=== PATIENT | male | born 1945 | race Caucasian/White ===

== ENCOUNTER 2017-12-08 06:39 | Inpatient (IN) | payer MEDICARE, OTHER ==
[2017-11-26 09:38] LABS: HEMATOCRIT 38.3 % (42.0-52.0); HEMOGLOBIN 12.9 gm/dL (14.0-18.0); MCHC 33.5 g/dL (28.0-37.0); MCV 95.3 fL (80.0-100.0); MPV 7.5 fl. (7.2-11.1); RBC 4.02 mil/uL (4.50-6.00); RDW-CV 13.6 % (10.5-14.5); WBC 4.6 thou/uL (4.0-11.0)
[2017-11-26 09:49] LABS: URINE BILIRUBIN NEGATIVE (Negative); URINE BLOOD NEGATIVE (Negative); URINE CLARITY CLEAR; URINE COLOR YELLOW; URINE GLUCOSE-RANDOM NEGATIVE (Negative); URINE KETONES NEGATIVE (Negative); URINE LEUKOCYTES-REFLEX NEGATIVE (Negative); URINE NITRITE-REFLEX NEGATIVE (Negative); URINE PROTEIN NEGATIVE (Negative); URINE UROBILINOGEN 0.2 E.U./dl (0.2-1.0)
[2017-11-26 10:02] LABS: ALBUMIN 3.8 g/dL (3.4-5.0); CALCIUM 9.1 mg/dL (8.5-10.1); CREATININE 2.1 mg/dL (0.6-1.3); POTASSIUM 3.9 mmol/L (3.5-5.1); TOTAL BILIRUBIN 0.5 mg/dL (<0.1-1.0); TOTAL PROTEIN 7.5 g/dL (6.4-8.2)
[2017-11-26 10:03] LABS: INR 1.1; PROTIME 10.5 Seconds (9.20-11.50)
--- NOTE | 2017-11-26 16:02 | EKG ---
[place] [address] ELECTROCARDIOGRAM REPORT Name: CHANO LANGLEY Room: PRE IN [facility]#: [id number] Admission: Attend Phys: Neli Herrera Discharge: Date of : 43 Report #: [id number] THIS REPORT FOR: //name// [facility] Test Date: 2017-11-26 Test Time: 09:25:19 Pat Name: CHANO LANGLEY Department: Room: Gender: Export Agent: : 1945 Requested By: Saurabh Solo Order Number: [id number] Reading MD: Rober Damian Measurements Intervals Wilbur Rate: 68 P: 52 ND: 190 QRS: -19 QRSD: 98 T: 51 QT: 371 QTc: 395 Interpretive Statements Sinus rhythm Borderline left axis deviation No previous ECG available for comparison Electronically Signed On 11-26-2017 16:02:50 CDT by Rober Damian [email or web address] <ELECTRONICALLY SIGNED> By: Rober Damian MD, [facility] 11/26/17 1602 0925 0925 Rober Damian MD, FACC /EPI
[~2017-12-08] VITALS: Ht 182.9 cm; Wt 77.1 kg
[~2017-12-08 06:39] MED LIST: AMBIEN 5 MG TABL5 M1 PO; APAP650 PO; APPLE CIDER VI600 MG PO; ASPIR 8181 MG PO; BIOTIN2500 MCG PO; CALCIUM 600 +1 EAC1 PO; CENTRUM GARLIC300 MG PO; CENTRUM SILVER1 EAC2 PO; CO Q-10100 MG PO; CURCUMIN PO; FISH OIL 1,001000 M2 PO; GLUCOSAMINE CH PO; HYDROCODONE-AP1 EAC6 PO; MAGOX 400400 MG PO; PREDNISONE ACETATE OPHTHALMIC; PROSTATE HEALT1 EAC1 PO; TURMERIC PO; VOLTAREN GEL 1100 G2 TOP; ZESTORETIC 20-1 EAC3 PO
[2017-12-08 11:18] VITALS: BP 150/76
[2017-12-08 16:40] VITALS: BP 146/79
--- NOTE | 2017-12-08 18:52 | NUR ---
PATIENT ADMITTED TO ROOM 309 POST RIGHT TOTAL KNEE AT 1640. ASSESSMENT CHARTED. VITALS STABLE ON ROOM AIR, CAPNO IN PLACE. HAS DENIED PAIN SINCE SURGERY. BULKY DRESSING TO RIGHT KNEE INTACT. HEMOVAC DRAIN PATENT AND POLAR CARE TO RIGHT KNEE. SCD FOOT PUMPS IN PLACE. IV FLUIDS INFUSING. HAS HAD FAMILY AT BEDSIDE THIS EVENING. FALL PRECAUTIONS IN PLACE. CALL LIGHT WITHIN REACH. WILL CONTINUE WITH PLAN OF CARE.
[2017-12-08 20:30] VITALS: BP 138/69
[2017-12-09 00:05] VITALS: BP 155/75
[2017-12-09 00:09] VITALS: BP 122/54
--- NOTE | 2017-12-09 05:18 | NUR ---
PATIENT ALERT AND ORIENTED. VITALS STABLE. PLACED ON 2L, CAPNO IN PLACE. RIGHT KNEE DRESSING C/D/I. PAIN CONTROLLED WITH PO MEDICATION. DENIES NAUSEA. REPOSITIONS SELF IN BED. HEMAVAC IN PLACE. HOURLY ROUNDS. BED ALARM IN USE. NURSING WILL CONTINUE TO MONITOR.
[2017-12-09 05:25] LABS: HEMATOCRIT 33.1 % (42.0-52.0); HEMOGLOBIN 11.4 gm/dL (14.0-18.0)
[2017-12-09 06:56] VITALS: BP 134/77
[2017-12-09 07:55] VITALS: BP 128/68
--- NOTE | 2017-12-09 08:59 | NUR ---
RECIEVED O.T. EVAL AND TX ORDERS. WILL DEFER TO P.T. AND NURSING AT THIS TIME. PLEASE ORDER FURTHER O.T. SERVICES IF NEEDED.
[2017-12-09 10:17] LABS: CALCIUM 8.4 mg/dL (8.5-10.1); CREATININE 1.9 mg/dL (0.6-1.3); POTASSIUM 4.9 mmol/L (3.5-5.1)
[2017-12-09] MEDS ORDERED: XARELTO10 MG PO (10:26)
[2017-12-09 10:30] VITALS: BP 128/68
--- NOTE | 2017-12-09 11:12 | NUR ---
SW met with pt to complete initial assessment, introduce self, and SW role. Pt alert, oriented, pleasant. Pt lives at home with his and pt explained that pt is not able to assist physically due to her own health limitations, but that pt sister in law is planning on staying with pt and pt for a while and pt sister in law can provide any support and assistance needed. Pt just has a rollator and knows that he needs a standard rolling walker. SW to order standard rolling walker through [facility]. Pt has toilet riser and shower bench already and also has a stair lift. Pt to have HH services follow. GILBERTO sent referral and orders to [facility] and left a message with Rhianna.
--- NOTE | 2017-12-09 11:47 | NUR ---
[facility] JIM'D PT.TO HAVE A FWW. FAXED FACE SHEET AND ORDER TO HER. CM WILL LET THERAPY KNOW THAT PT.NEEDS A FRONT WHEEL WALKER AT DISCHARGE.
[2017-12-09 12:14] VITALS: BP 101/50
[2017-12-09] MEDS ORDERED: ASPIRIN325 PO (12:23)
--- NOTE | 2017-12-09 12:23 | NUR ---
CM CALLED IN PRESCRIPTION FOR XARELTO WRITTEN. COPAY WILL BE $167. DISCUSSED WITH PT. HE SAID TOLD HIM IF BLOOD THINNER IS TOO MUCH, HE CAN TAKE A FULL STRENGTH ASPIRIN DAILY INSTEAD. HE WOULD LIKE TO DO THAT. RAAD ANDINO NOTIFIED.
--- NOTE | 2017-12-09 14:39 | NUR ---
PATIENT DISCHARGING TO HOME WITH HOME HEALTH. IV REMOVED. SCRIPT FOR NORCO GIVEN. PATIENT UNABLE TO AFFORD XARELTO. PER DR MARTINO PATIENT MAY DO ASPIRIN 325MG DAILY FOR [address] XARELTO. PAIN CONTROLLED. CPM SENT [facility] PATIENT. HEMOVAC REMOVED AND DRESSING APPLIED. BILATERAL TEDS IN PLACE. PATIENT AND SPOUSE VERBALIZE UNDERSTANDING OF DC INSTRUCTIONS.
--- NOTE | 2017-12-10 15:05 | S ---
[place] [address] SURGICAL PATH RPT PROCEDURE Name: JONAS LANGLEY Room: [address] IN M.R.#: [id number] Admission: 12/08/17 Date of : 43 Discharge: 12/09/17 Report #: [id number] Path Case #: [id number] PATHOLOGY REPORT COLLECTION DATE: 12/08/2017 RECEIVED DATE: 12/08/2017 SUBMITTING PHYS: Dr. Saurabh Solo II OTHER PHYS: Dr. Chadd Funez, JOCELYNE SPECIMEN(S) RECEIVED: A.R knee joint synovitis B.R knee bone * * * * * * * * * * * * FINAL DIAGNOSIS: A. Right knee joint synovitis: - Moderate non-specific chronic synovitis with scattered stromal hemosiderin deposition indicative of remote hemorrhage. B. Bone right knee, total knee replacement: - Benign meniscus and benign bone and cartilage with severe degenerative changes. (ROXANA:db; 12/10/2017) PATHOLOGIST: Bret Morrow M.D. REPORT ELECTRONICALLY SIGNED BY: Bret Morrow M.D. DATE/TIME: 12/10/2017 15:04 * * * * * * * * * * * * GROSS PATHOLOGY: A. Received in formalin labeled "Jonas Langley, right knee joint synovitis," is a friable segment of pale yellow to kovacs-brown lobulated tissue measuring 3.8 x 1.4 x 1.1 cm in greatest dimensions that easily fragments upon palpation. The specimen is submitted representatively in cassette A1. B. Received in formalin labeled "Jonas Langley, bone right knee," are multiple segments of bone, including tibial plateau, measuring 14.7 x 13.2 x 2.3 cm in aggregate dimensions with scant attached soft tissue; possible meniscus is present. The specimen shows focal eburnation of the articular surfaces. [employer] sections of bone and soft tissue are submitted in cassette B1, following decalcification. (DAC; 12/09/2017) CLINICAL HISTORY: [place] [address] SURGICAL PATH RPT PROCEDURE Name: JONAS LANGLEY Room: [address] IN M.R.#: [id number] Admission: 12/08/17 Date of : 43 Discharge: 12/09/17 Report #: [id number] Path Case #: [id number] INITIAL CPT CODE(S): A; 72969 B; 27515, 94756 Professional services performed by [facility] at [facility], [address] [place] [id number]. Technical services performed by [facility] at [address] [place] [address], [facility] [address] [address]. [facility] [address] [address] PHONE: [phone] DIRECTOR: Jarrett Corbett M.D. * * * END OF REPORT * * *
--- NOTE | 2017-12-14 20:18 | D ---
[address] [address] DISCHARGE SUMMARY Name: CHANO LANGLEY Room: [address] IN M.R.#: [id number] Admission: 12/08/17 Attend Phys: Neli Herrera Discharge: 12/09/17 Date of : 43 Report #: [id number] THIS REPORT FOR: //name// CC: Dr. Armin Solo II DO Ching Armin Adrian DATE OF SERVICE: 12/09/2017 DISCHARGE DIAGNOSES: 1. Degenerative joint disease of the right knee, status post total knee arthroplasty. 2. Known hypertension. 3. Chronic kidney disease stage 3. HOSPITAL COURSE: The patient is a 72-year-old gentleman who presented to us here postop after a knee surgery. The patient has been dealing with his DJD for a while and underwent TKA with Dr. Solo. Postop, the patient is doing well. His pain is about 2-3. He has done his CPK already this morning. If he continues to do well with PT and OT, he can be discharged to home if okay with Orthopedics. DISCHARGE PHYSICAL EXAMINATION: VITAL SIGNS: Temperature 36.6, heart rate 79, respirations 18, blood pressure 130/68, 96% on 2 liters nasal cannula. GENERAL: The patient is alert. He is oriented x 3, not in acute respiratory distress. HEENT: Normocephalic, atraumatic. Nares patent. Clear oropharynx. NECK: Supple. No lymphadenopathy. CARDIOVASCULAR: Normal rate, regular rhythm. No murmurs noted. RESPIRATORY: Clears to auscultation bilaterally. No crackles. GASTROINTESTINAL: Abdomen is soft, nontender, good bowel sounds. No organomegaly. GENITOURINARY: Deferred. MUSCULOSKELETAL: He does have dressing in place on the right knee. DISCHARGE INSTRUCTIONS: The patient will be discharged to home if okay with Dr. Solo. Follow up with Dr. Solo per him and PCP in about 3-[address] Solo. The patient will be discharged with PT and OT at home. Notify physician if there is fever of more than 38, pain uncontrolled by medication, shortness of breath, chest pain or infection with foul smelling drainage. DIET: Regular diet. DISCHARGE MEDICATIONS: Include aspirin. If okay with ortho, biotin 2500 daily, calcium with vitamin D3 1 tab p.o. b.i.d., cider vinegar 600 p.o. daily, fish oil 2000 p.o. b.i.d., garlic 300 daily, glucosamine 1 each p.o. daily, lisinopril/hydrochlorothiazide 1 tab p.o. daily, magnesium oxide 400 mg p.o. daily, multivitamins 1 each p.o. daily, CoQ10 200 mg t.i.d., prednisone 1 tablet weekly, turmeric 1800 p.o. daily. Of note, we will do a chemistry today, as he does have CKD and to make sure that we do not need [place] [address] DISCHARGE SUMMARY Name: CHANO LANGLEY Room: [address] IN [facility]#: [id number] Admission: 12/08/17 Attend Phys: Neli Herrera Discharge: 12/09/17 Date of : 43 Report #: [id number] For this discharge summary, I spent 32 minutes on this patient today. <ELECTRONICALLY SIGNED> By: Jasmina Vizcaino MD 12/14/172017 0951 1057Jasmina Vizcaino MD /nt
--- NOTE | 2017-12-15 08:30 | OP ---
[address] [address] OPERATIVE REPORT Name: CHANO LANGLEY Room: [address] IN M.R.#: [id number] Admission: 12/08/17 Attend Phys: Neli Herrera Discharge: 12/09/17 Date of : 43 Report #: [id number] THIS REPORT FOR: //name// CC: Saurabh Adrian DATE OF SERVICE: 12/08/2017 PREOPERATIVE DIAGNOSIS: Right knee osteoarthritis. POSTOPERATIVE DIAGNOSIS: Right knee osteoarthritis. PROCEDURE: Right total knee arthroplasty with Navio. SURGEON: Saurabh Solo II, DO. DIAPER MACHINE TENDER: EMILY Santana. ANESTHESIA: Per operative record. ESTIMATED BLOOD LOSS: 50 mL. ANTIBIOTICS: Per operative record. DRAINS: Medium Hemovac. COMPLICATIONS: None. CONDITION OF THE PATIENT: Stable to recovery room. BRIEF HISTORY: The patient was seen in preoperative area. Preoperative H and P was performed. Site was marked. Questions were answered. Risks and benefits discussed with the patient in detail and he elected to proceed with all risks. DESCRIPTION OF PROCEDURE: The patient was taken to the operative suite, placed supine on the table and given appropriate anesthesia. The patient's right lower extremity was sterilely prepped and draped. A well-padded tourniquet was applied to the upper thigh. Surgery began by midline incision of the right knee, carried down to the subcutaneous tissues. A medial parapatellar arthrotomy was performed and carried down to bone. The patella was then everted and excess soft tissue removed from around the femur as well as osteophytes. The tracker pin was then placed around the femur and tibia in appropriate fashion. The knee was then registered through the software in appropriate fashion. The robot was then activated and Guide PEG holes were drilled along the femur and tibia in appropriate fashion. The [place] [address] OPERATIVE REPORT Name: CHANO LANGLEY Room: [address]#: [id number] Admission: 12/08/17 Attend Phys: Neli Herrera Discharge: 12/09/17 Date of : 43 Report #: [id number] applied, checked with the drop zak for rotational alignment as well as with robotic assistance. An appropriate cut was made. The 4-in-1 cutting block was then sized, checked for alignment and appropriate cut was made. Attention was then turned to the tibia. Retractors were placed along the collateral ligaments to protect them. The tibial cutting guide was then applied, checked with robotic assistance for appropriate alignment and appropriate cut was made. After the tibial bone was removed, the baseplate was trialed and pinned in appropriate position. Femur was then placed in appropriate position and reamed in appropriate fashion to the box. This was then trialed and it showed excellent flexion and extension of the knee with excellent range of motion. The patella was then reamed in appropriate fashion. Three peg holes were drilled and it was then trialed and showed excellent flexion and extension of the knee with excellent tracking patella. These trials were then removed. The tibia was punched in appropriate fashion. Bone ends were cleansed with Pulsavac irrigation. The final implants were then opened and these were then inserted on to the bone with the knee held in compression to allow the cement to cure. The tracker pins were then removed at this time and excess cement was removed utilizing a [place] and osteotome. After it cured, the knee was taken through range of motion with the final trial implant. This was selected to be appropriate in size and the final was then selected and malleted in position. The tourniquet was deflated. Hemostasis was maintained with electrocautery. Pain cocktail was injected. PRP was injected throughout the knee. The capsule was closed with a FiberWire and Vicryl stitch with a medium Hemovac drain applied. Skin was then closed with a Vicryl and Monocryl stitch and the pin sites were then closed utilizing nylon. Sterile dressing was applied. The patient was transported to the recovery room in stable condition. Counts were correct throughout the procedure. <ELECTRONICALLY SIGNED> By: Saurabh Solo II, DO 12/15/17 0830 2240 [id number] Solo II, DO /nt
== END 2017-12-09 15:21 | disposition home health service (06) | DRG 470 ==
LOC: M.PRE 06:39 → M.3W 10:09 → M.TBA 10:09 → M.PRE 10:24 → M.3W 16:51
PROVIDERS: Orthopaedic Surgery; ADMIT Internal Medicine
PROC: 0SRC0J9 Replacement of Right Knee Joint with Synthetic Substitute, Cemented, Open Approach (ICD-10-PCS; principal; 2017-12-08)
DX: M17.11 Unilateral primary osteoarthritis, right knee (principal); I12.9 Hypertensive chronic kidney disease with stage 1 through stage 4 chronic kidney disease, or unspecified chronic kidney disease; N18.3 Chronic kidney disease, stage 3 (moderate); Z88.0 Allergy status to penicillin; Z88.8 Allergy status to other drugs, medicaments and biological substances; Z79.899 Other long term (current) drug therapy; Z98.42 Cataract extraction status, left eye; Z98.41 Cataract extraction status, right eye; Z83.3 Family history of diabetes mellitus; Z82.49 Family history of ischemic heart disease and other diseases of the circulatory system; Z80.0 Family history of malignant neoplasm of digestive organs

== ENCOUNTER → 2018-11-10 | Outpatient (CLI) | payer MEDICARE, OTHER ==
[~2018-11-10] MED LIST changes: +ASPIRIN325 PO; +XARELTO10 MG PO
== END ==
LOC: M.ULTRA 10:13
DX: R42 Dizziness and giddiness (principal)